=== PATIENT | male | born 1935 | race Caucasian/White ===

== ENCOUNTER 2017-01-09 14:10 | Inpatient (IN) | payer OTHER, BC ==
[~2017-01-09] VITALS: Ht 170.2 cm; Wt 59.0 kg
[2017-01-09 15:02] LABS: BASOPHIL % 0.1 % (0-2)
[2017-01-09 15:08] LABS: CALCIUM 8.6 mg/dL (8.5-10.1); CARBON DIOXIDE 24.2 mmol/L (21-32); CHLORIDE SERUM 107 mmol/L (98-107); GLUCOSE SERUM 114 mg/dL (74-106); POTASSIUM SERUM 4.6 mmol/L (3.5-5.1); SODIUM SERUM 141 mmol/L (136-145)
[2017-01-09 15:12] LABS: PLATELET COUNT 456 x10^3mcL (130-400); RED CELL DISTRIBUTION WIDTH 15.3 % (11.5-14.5)
[2017-01-09 15:15] LABS: ALKALINE PHOSPHATASE 61 U/L (46-116); ALT/SGPT 7 U/L (16-63); AST/SGOT 6 U/L (15-37); BILIRUBIN TOTAL 0.24 mg/dL (0.20-1.00); TOTAL PROTEIN, SERUM 6.7 g/dL (6.4-8.2)
[2017-01-09 15:16] LABS: ALBUMIN 2.4 g/dL (3.4-5.0)
[2017-01-09 15:51] LABS: rbc morphology (normal/abnorm) ABNORMAL (NORMAL)
[2017-01-09] MEDS ORDERED: MIRALAX17 GM PO (17:31)
[2017-01-09] MEDS ORDERED: NEU300 PO (17:32)
[2017-01-09] MEDS ORDERED: ALEVE220 MG PO (17:32)
[2017-01-09] MEDS ORDERED: SENNA8.6 M2 PO (17:32)
[2017-01-09] MEDS ORDERED: NATURE'S BLEND F1 MG PO (17:33)
[2017-01-09] MEDS ORDERED: TAMSULOSIN HYD0.4 M1 PO (17:33)
[2017-01-09] MEDS ORDERED: PANTOPRAZOLE SO40 M1 PO (17:33)
[2017-01-09] MEDS ORDERED: NOR10 PO (17:34)
[2017-01-09] MEDS ORDERED: TOPROL XL100 MG PO (17:34)
[2017-01-09] MEDS ORDERED: BENADRYL ALLERG25 M1 PO (17:35)
[2017-01-09 18:54] VITALS: BP 117/63
[2017-01-09 19:07] LABS: MAGNESIUM 1.7 mg/dL (1.8-2.4); PHOSPHOROUS 2.6 mg/dL (2.5-4.9)
[2017-01-09 19:15] LABS: T3 TOTAL 0.81 ng/mL
[2017-01-09 19:17] LABS: FREE T4 1.47 ng/dL (0.76-1.46); FREE THYROXINE INDEX 3.2 ug/dL (1.4-4.5); T4(THYROXINE) 8.8 ug/dL (4.7-13.3)
[2017-01-09 19:30] LABS: CHOLESTEROL/HDL RATIO 2.5
[2017-01-09 22:15] VITALS: BP 114/58
[2017-01-09 23:00] LABS: UA SPECIFIC GRAVITY <=1.005 (1.005-1.035); microscopic required? YES; urine erythrocyte NEGATIVE (NEGATIVE)
[2017-01-09 23:15] LABS: AMPHETAMINE QUAL UR NONE DETECTED (NEG <=1000)
[2017-01-10 06:08] VITALS: BP 120/63
[2017-01-10 09:40] LABS: CALCIUM 8.2 mg/dL (8.5-10.1); CARBON DIOXIDE 21.5 mmol/L (21-32); CHLORIDE SERUM 112 mmol/L (98-107); GLUCOSE SERUM 109 mg/dL (74-106); POTASSIUM SERUM 4.5 mmol/L (3.5-5.1); SODIUM SERUM 145 mmol/L (136-145)
[2017-01-10 09:55] VITALS: BP 110/54
[2017-01-10 10:25] LABS: BASOPHIL % 0.3 % (0-2); PLATELET COUNT 385 x10^3mcL (130-400); RED CELL DISTRIBUTION WIDTH 15.3 % (11.5-14.5)
[2017-01-10 11:14] LABS: rbc morphology (normal/abnorm) ABNORMAL (NORMAL)
[2017-01-10 13:43] LABS: IRON 415 ug/dL (65-170); TOTAL IRON BINDING CAPACITY 411 ug/dL (250-450)
[2017-01-10 14:00] VITALS: BP 103/51
[2017-01-10 14:17] LABS: RED BLOOD CELLS 1.85 M/mm3 (4.52-5.90)
[2017-01-10 17:11] VITALS: BP 106/54
[2017-01-10 17:16] LABS: BASOPHIL % 0.4 % (0-2); PLATELET COUNT 337 x10^3mcL (130-400)
[2017-01-10 17:32] LABS: RED CELL DISTRIBUTION WIDTH 15.4 % (11.5-14.5)
[2017-01-10 18:46] LABS: rbc morphology (normal/abnorm) ABNORMAL (NORMAL)
[2017-01-10 20:16] LABS: BASOPHIL % 0.4 % (0-2); PLATELET COUNT 348 x10^3mcL (130-400)
[2017-01-10 20:41] LABS: RED CELL DISTRIBUTION WIDTH 15.8 % (11.5-14.5)
[2017-01-10 21:21] LABS: rbc morphology (normal/abnorm) ABNORMAL (NORMAL)
[2017-01-10 21:22] LABS: ovalocyte/elliptocyte 1+
[2017-01-10 21:34] VITALS: BP 107/53
[2017-01-11 06:10] VITALS: BP 125/56
[2017-01-11 06:46] LABS: CALCIUM 8.4 mg/dL (8.5-10.1); CARBON DIOXIDE 24.5 mmol/L (21-32); CHLORIDE SERUM 111 mmol/L (98-107); CREATININE SERUM 0.8 mg/dL (0.7-1.3); GLUCOSE SERUM 110 mg/dL (74-106); PHOSPHOROUS 2.9 mg/dL (2.5-4.9); POTASSIUM SERUM 4.1 mmol/L (3.5-5.1); SODIUM SERUM 143 mmol/L (136-145)
[2017-01-11 08:28] LABS: BASOPHIL % 0.6 % (0-2); PLATELET COUNT 361 x10^3mcL (130-400)
[2017-01-11 08:32] LABS: RED CELL DISTRIBUTION WIDTH 15.6 % (11.5-14.5)
[2017-01-11 10:15] VITALS: BP 126/65
[2017-01-11 10:53] LABS: rbc morphology (normal/abnorm) ABNORMAL (NORMAL)
[2017-01-11 14:58] VITALS: BP 140/50
[2017-01-11 18:28] LABS: CALCIUM 8.1 mg/dL (8.5-10.1); CARBON DIOXIDE 22.9 mmol/L (21-32); CHLORIDE SERUM 110 mmol/L (98-107); CREATININE SERUM 0.7 mg/dL (0.7-1.3); GLUCOSE SERUM 113 mg/dL (74-106); POTASSIUM SERUM 3.7 mmol/L (3.5-5.1); SODIUM SERUM 145 mmol/L (136-145)
[2017-01-11 18:34] VITALS: BP 112/62
[2017-01-11 20:35] LABS: BASOPHIL % 0.4 % (0-2); PLATELET COUNT 358 x10^3mcL (130-400)
[2017-01-11 20:48] LABS: RED CELL DISTRIBUTION WIDTH 15.9 % (11.5-14.5)
[2017-01-11 21:18] LABS: ovalocyte/elliptocyte 1+; rbc morphology (normal/abnorm) ABNORMAL (NORMAL)
[2017-01-11 22:48] VITALS: BP 116/65
[2017-01-11 23:25] VITALS: BP 110/56
[2017-01-12 05:48] VITALS: BP 121/63
[2017-01-12 06:56] LABS: CALCIUM 8.2 mg/dL (8.5-10.1); CARBON DIOXIDE 25.2 mmol/L (21-32); CHLORIDE SERUM 109 mmol/L (98-107); CREATININE SERUM 0.7 mg/dL (0.7-1.3); GLUCOSE SERUM 100 mg/dL (74-106); MAGNESIUM 1.8 mg/dL (1.8-2.4); PHOSPHOROUS 2.6 mg/dL (2.5-4.9); POTASSIUM SERUM 3.9 mmol/L (3.5-5.1); SODIUM SERUM 143 mmol/L (136-145)
[2017-01-12 07:17] LABS: BASOPHIL % 0.4 % (0-2); PLATELET COUNT 380 x10^3mcL (130-400)
[2017-01-12 09:57] VITALS: BP 118/66
[2017-01-12] MEDS ORDERED: PRI20 PO (10:16)
[2017-01-12] MEDS ORDERED: LAC PO (12:15)
[2017-01-12] MEDS ORDERED: MAC100 PO (12:15)
[2017-01-12 13:17] VITALS: BP 118/66
== END 2017-01-12 13:49 | disposition home or self-care (01) | DRG 377 ==
LOC: ED 14:10 → DU 17:31
PROVIDERS: Emergency Medicine; Internal Medicine; ADMIT Family Medicine
PROC: 30233N1 Transfusion of Nonautologous Red Blood Cells into Peripheral Vein, Percutaneous Approach (ICD-10-PCS; 2017-01-10)
PROC: 0DB78ZX Excision of Stomach, Pylorus, Via Natural or Artificial Opening Endoscopic, Diagnostic (ICD-10-PCS; principal; 2017-01-10 08:30)
PROC: 0W3P8ZZ Control Bleeding in Gastrointestinal Tract, Via Natural or Artificial Opening Endoscopic (ICD-10-PCS; 2017-01-10 08:30)
DX: K25.4 Chronic or unspecified gastric ulcer with hemorrhage (principal); E43 Unspecified severe protein-calorie malnutrition; N17.0 Acute kidney failure with tubular necrosis; D62 Acute posthemorrhagic anemia; C49.A2 Gastrointestinal stromal tumor of stomach; K29.80 Duodenitis without bleeding; M51.37 Other intervertebral disc degeneration, lumbosacral region; M62.50 Muscle wasting and atrophy, not elsewhere classified, unspecified site; N40.0 Benign prostatic hyperplasia without lower urinary tract symptoms; Z87.891 Personal history of nicotine dependence
CPT/HCPCS: 43235; 82962; 83880; 84439; C9113; J0696; J1200; J1610; J1750; J2250; J2270; J2310; J2405; J3010; J3490; J7030; J7050; P9016; Q0092; Q0163